=== PATIENT | male | born 1970 ===

== ENCOUNTER 2019-08-17 19:59 | Emergency (ER) | payer SELFPAY ==
[2019-08-17 20:40] VITALS: BP 106/64; PULSE 115; RESP 18; TEMP 37.9; O2SAT 96; BMI 27.1
== END 2019-08-17 21:40 | disposition left against medical advice (07) ==
LOC: ER 20:17
PROVIDERS: Emergency Provider Emergency Medicine
DX: Z53.21 Procedure and treatment not carried out due to patient leaving prior to being seen by health care provider (principal)
CPT/HCPCS: 99281

== ENCOUNTER 2019-08-23 10:18 | Emergency (ER) | payer SELFPAY ==
--- NOTE | 2019-08-23 10:33 | XRR_ITS ---
PROCEDURE INFORMATION: Exam: XR Chest, 1 View Exam date and time: 08/23/2019 10:57 AM Age: 48 years old Clinical indication: Patient HX: Cough/ nausea x 2 days TECHNIQUE: Imaging protocol: XR of the chest Views: 1 view. COMPARISON: No relevant prior studies available. FINDINGS: Lungs: Unremarkable. No consolidation. Pleural space: Unremarkable. No pleural effusion. No pneumothorax. Heart/Mediastinum: Unremarkable. No cardiomegaly. Bones/joints: Unremarkable. XR/XR chest 1V portable [id number] IMPRESSION: No acute findings.
--- NOTE | 2019-08-23 10:33 | CT_ITS ---
WS: [id number] CT ABDOMEN AND PELVIS WITH CONTRAST HISTORY: jaundice TECHNIQUE: Imaging performed of the abdomen and pelvis with IV contrast. Single phase imaging of the abdomen. Coronal and sagittal reformats are submitted. All CT scans at [facility] use at least one of these dose optimization techniques: automated exposure control; mA and/or kV adjustment per patient size (includes targeted exams where dose is matched to clinical indication); or iterativ e reconstruction. IV CONTRAST: Omnipaque 300; 95 mL IV. Oral contrast: No DLP: 813.56 mGy.cm COMPARISON: None available. Lower thorax: Emphysematous changes at the lung bases. Heart is normal size. No hiatal hernia. Liver/biliary system: Normal size with no intrahepatic dilatation. Gallbladder: Normal size gallbladder. No definite stones or pericholecystic fluid. Pancreas: Normal. Spleen: Normal. Adrenal glands: Normal. Right kidney: Normal. Left kidney: Normal. Aorta: Normal. Lymphadenopathy: None. Free fluid: None. GI tract: Marked fecal retention in the rectosigmoid region. There is an area of mild luminal narrowi ng in the distal sigmoid which could relate peristalsis or stricture. The appendix is normal. Abdominal wall: Unremarkable abdominal wall. No hernia. Pelvis: Normally distended urinary bladder. No free fluid or adenopathy. Bones: Mild degenerative changes at L4-5 and L5-S1. CT/CT abdomen pelvis w con* [id number] IMPRESSION: 1. Normal appendix. 2. No bile duct dilatation or pancreatic head mass. 3. Normal gallbladder. 4. Moderate constipation distal colon with an area of stricture in the distal sigmoid. This stricture may be due to peristalsis throughout neoplastic strictu re cannot be excluded. Recommend follow-up colonoscopy.
[2019-08-23 10:41] VITALS: BP 113/65; PULSE 109; RESP 16; TEMP 36.7; O2SAT 96; BMI 31.8
--- NOTE | 2019-08-23 10:43 | W.ED.GENADLT ---
HPI - General Adult General: Chief complaint: Weakness Stated complaint: WEAKNESS, AMS Time Seen by Provider: 08/23/19 10:26 History of Present Illness: HPI narrative: Patient presents to the emergency room with complaint of severe generalized weakness. He states that anytime he stands up he passes out. Patient is markedly jaundiced in the emergency department. He denies IV drug use, multiple sexual partners, or other risk factors for hepatitis B or C. Review of Systems General: Reports: 10 or more systems reviewed and unremarkable except in HPI and below Eyes: Reports: yellow eyes Skin/Breast: Reports: jaundice PFSH ED PFSH: Social History Smoking and tobacco status: current every day smoker Alcohol intake: never Substance/Drug Use: never Physical Exam Const: COMMON NORMALS: alert GENERAL APPEARANCE: cooperative, well developed, in distress and ill appearing HENMT: COMMON NORMALS: normocephalic and atraumatic HEAD & SCALP: normal to inspection, normocephalic and atraumatic Eye: GENERAL EYE: appearance normal, both eyes and all related structures Neck/C-Spine: COMMON NORMALS: full ROM, no lymphadenopathy and no meningeal signs GENERAL: Yes normal visual inspection CERVICAL SPINE: Yes cervical ROM normal and Yes normal cervical lordosis Chest: COMMONS NORMALS: normal inspection of the chest and normal palpation of entire chest wall Resp: COMMON NORMALS: normal respiratory effort, clear to auscultation bilaterally and percussion normal AUSCULTATION: clear to auscultation bilaterally PERCUSSION: percussion normal Cardio: COMMON NORMALS: regular rate, regular rhythm, S1 normal heart sound present and S2 normal heart sound present JUGULAR VENOUS DISTENTION: no JVD PALPATION: normal PMI RATE: regular rate RHYTHM: regular rhythm HEART SOUNDS: S1 normal heart sound present and S2 normal heart sound present GI: COMMON NORMALS: Soft to palpation and No hepatosplenomegaly present INSPECTION: Yes normal to inspection PALPATION: Yes Soft to palpation and Yes No hepatosplenomegaly present PERCUSSION: normal to percussion : COMMON NORMALS: Yes no CVA tenderness BLADDER/KIDNEY EXAM: Yes no CVA tenderness Back/Pelvis: COMMON NORMALS: no CVA tenderness, thoracic and lumbar spine normal to inspection and thoraco-lumbar ROM normal Extremity: COMMON NORMALS: normal to inspection, full ROM and capillary refill normal Neuro: SENSORIUM/ORIENTATION: Yes alert MENINGEAL SIGNS: Yes no meningeal signs Skin: COMMON NORMALS: no rashes or lesions noted and no wounds GENERAL SKIN EXAM: no rashes or lesions noted, elasticity normal and jaundice LESIONS: no lesions RASHES: no rashes TRAUMA: no lacerations or abrasions HAIR: normal NAILS: normal Course Vital Signs: Vital signs: Vital Signs Temperature 98.1 F 08/23/19 10:41 Pulse Rate 107 H 08/23/19 13:05 Respiratory Rate 18 08/23/19 12:23 Blood Pressure 87/53 08/23/19 13:05 Pulse Oximetry 94 08/23/19 13:05 [facility] - General Adult Lab Data: Labs: Lab Results 08/23/19 08/23/19 08/23/19 Range/Units 11:13 11:13 11:13 WBC 13.6 H (4.0-10.0) 10^3/ uL RBC 1.54 L (4.1-5.3) 10^6/u L Hgb 5.6 L* (11.7-16.6) g/dL Hct 16.7 L* (42.0-52.0) % MCV 108.4 H (80-94) fL MCH 36.4 H (28.0-34.0) pg MCHC 33.5 (30.0-36.0) g/dL RDW 12.6 (12.1-15.1) % Plt Count 164 (130-400) 10^3/c mm MPV 11.0 H (7.4-10.4) fL Neut % (Auto) 67.8 % Lymph % (Auto) 13.0 % Union % (Auto) 4.6 % Eos % (Auto) 5.1 % Baso % (Auto) 0.5 % Neut # (Auto) 9.24 H (1.8-7.7) 10^3/u L Lymph # (Auto) 1.8 (0.8-4.8) 10^3/u L Union # (Auto) 0.6 (0.2-0.9) 10^3/u L Eos # (Auto) 0.7 (0.0-0.8) 10^3/u L Baso # (Auto) 0.1 (0.0-0.1) 10^3/u L Nucleated RBC % (a uto) 1.4 % Nucleated RBCs # 0.2 /100WBC PT 15.00 H (10.5-13.3) SECO NDS INR 1.14 (0.8-1.2) APTT 25.9 (23.9-36.7) SECO NDS Sodium 128 L (136-145) mmol/L Potassium 4.4 (3.5-5.1) mmol/L Chloride 92 L (98-107) mmol/L Carbon Dioxide 25 (22-29) mmol/L Anion Gap 15.4 (5-19) BUN 26 H (6-20) mg/dL Creatinine 0.7 (0.7-1.2) mg/dL GFR Calculation 119.9 (90-130) mL/min Glucose 219 H (65-115) mg/dL Calculated Osmolal ity 270 L (285-295) mOsm/k g Lactate (0.5-2.2) mmol/L Calcium 8.4 L (8.5-10.5) mg/dL Total Bilirubin 8.0 H* (0.15-1.2) mg/dL AST 247 H (0-40) U/L ALT 170 H (0-41) U/L Alkaline Phosphata se 62 (40-130) IU/L Ammonia (16-60) umol/L Total Protein 7.3 (6.6-8.7) g/dL Albumin 3.1 L (3.5-5.2) g/dL Globulin 4.2 (1.3-4.6) g/dL Lipase 19 (13-60) U/L Hepatitis A IgM Ab (Nonreactive) Hep Bs Antigen (Nonreactive) Hep Bs Antibody (0-8.5) Hep B Core Total A b (Nonreactive) Hepatitis C Antibo dy (Nonreactive) 08/23/19 08/23/19 08/23/19 Range/Units 11:13 11:13 11:13 WBC (4.0-10.0) 10^3/ uL RBC (4.1-5.3) 10^6/u L Hgb (11.7-16.6) g/dL Hct (42.0-52.0) % MCV (80-94) fL MCH (28.0-34.0) pg MCHC (30.0-36.0) g/dL RDW (12.1-15.1) % Plt Count (130-400) 10^3/c mm MPV (7.4-10.4) fL Neut % (Auto) % Lymph % (Auto) % Union % (Auto) % Eos % (Auto) % Baso % (Auto) % Neut # (Auto) (1.8-7.7) 10^3/u L Lymph # (Auto) (0.8-4.8) 10^3/u L Union # (Auto) (0.2-0.9) 10^3/u L Eos # (Auto) (0.0-0.8) 10^3/u L Baso # (Auto) (0.0-0.1) 10^3/u L Nucleated RBC % (a uto) % Nucleated RBCs # /100WBC PT (10.5-13.3) SECO NDS INR (0.8-1.2) APTT (23.9-36.7) SECO NDS Sodium (136-145) mmol/L Potassium (3.5-5.1) mmol/L Chloride (98-107) mmol/L Carbon Dioxide (22-29) mmol/L Anion Gap (5-19) BUN (6-20) mg/dL Creatinine (0.7-1.2) mg/dL GFR Calculation (90-130) mL/min Glucose (65-115) mg/dL Calculated Osmolal ity (285-295) mOsm/k g Lactate 2.5 H (0.5-2.2) mmol/L Calcium (8.5-10.5) mg/dL Total Bilirubin (0.15-1.2) mg/dL AST (0-40) U/L ALT (0-41) U/L Alkaline Phosphata se (40-130) IU/L Ammonia 11 L (16-60) umol/L Total Protein (6.6-8.7) g/dL Albumin (3.5-5.2) g/dL Globulin (1.3-4.6) g/dL Lipase (13-60) U/L Hepatitis A IgM Ab Non-reactive (Nonreactive) Hep Bs Antigen Non-reactive (Nonreactive) Hep Bs Antibody 3.5 (0-8.5) Hep B Core Total A b Non-reactive (Nonreactive) Hepatitis C Antibo dy Non-reactive (Nonreactive) Discharge Plan Discharge Patient Disposition: Xfer Other Clinical Impression: Weakness, Orthostasis Acute liver failure Qualifiers: Hepatic coma status: without hepatic coma Qualified Code(s): K72.00 - Acute and subacute hepatic failure without coma Anemia Qualifiers: Anemia type: unspecified type Qualified Code(s): D64.9 - Anemia, unspecified Condition: Fair Discharge Orders: Transfer Out of Facility (Order); Ordered 08/23/19 Ordered By: Lalito Sloan Coding Level of Care Code ED Motor Electric[employer] for Chg Fwd Exam Comprehensive
[2019-08-23 10:53] VITALS: O2SAT 96
[2019-08-23] MEDS: sodium chloride 0.9% 1,000 ML 999 ML IV ×2 (11:19→13:00)
[2019-08-23 11:37] LABS: Basophils # 0.1 10^3/uL (0.0-0.1); Basophils % 0.5 %; Eosinophils # 0.7 10^3/uL (0.0-0.8); Eosinophils % 5.1 %; Lymphocytes # 1.8 10^3/uL (0.8-4.8); Mean Corpuscular HGB Conc 33.5 g/dL (30.0-36.0); Mean Corpuscular Hemoglobin 36.4 pg (28.0-34.0); Mean Corpuscular Volume 108.4 fL (80-94); Monocytes # 0.6 10^3/uL (0.2-0.9); Monocytes % 4.6 %; Neutrophils # 9.24 10^3/uL (1.8-7.7); Neutrophils % 67.8 %; Nucleated Red Blood Cells # 0.2 /100WBC; Nucleated Red Blood Cells % 1.4 %; Platelet Count 164 10^3/cmm (130-400); Red Blood Count 1.54 10^6/uL (4.1-5.3); Red Cell Distribution Width 12.6 % (12.1-15.1); White Blood Count 13.6 10^3/uL (4.0-10.0)
[2019-08-23] MEDS: iohexol 300 mg/mL 100 mL Btl IV (11:40)
[2019-08-23 11:56] LABS: Ammonia 11 umol/L (16-60); Lactate (Lactic Acid level) 2.5 mmol/L (0.5-2.2)
[2019-08-23 11:57] LABS: Alanine Aminotransferase 170 U/L (0-41); Albumin Level 3.1 g/dL (3.5-5.2); Alkaline Phosphatase 62 IU/L (40-130); Anion Gap 15.4 (5-19); Aspartate Amino Transferase 247 U/L (0-40); Blood Urea Nitrogen 26 mg/dL (6-20); Calcium 8.4 mg/dL (8.5-10.5); Carbon Dioxide 25 mmol/L (22-29); Chloride 92 mmol/L (98-107); Globulin 4.2 g/dL (1.3-4.6); Glomerular Filtration Rate 119.9 mL/min (90-130); Glucose 219 mg/dL (65-115); Lipase 19 U/L (13-60); Osmolality Calculated 270 mOsm/kg (285-295); Potassium 4.4 mmol/L (3.5-5.1); Sodium 128 mmol/L (136-145); Total Protein 7.3 g/dL (6.6-8.7)
[2019-08-23 12:03] LABS: INR 1.14 (0.8-1.2); Partial Thromboplastin Time 25.9 SECONDS (23.9-36.7)
[2019-08-23 12:11] LABS: Hematocrit 16.7 % (42.0-52.0); Hemoglobin 5.6 g/dL (11.7-16.6); Slide Review Slide Review Perform
[2019-08-23 12:20] LABS: Hepatitis A Antibody IgM Non-Reactive (Nonreactive); Hepatitis B Core AB, Total Non-Reactive (Nonreactive); Hepatitis B Surface AB 3.5 (0-8.5); Hepatitis B Surface Antigen Non-Reactive (Nonreactive); Hepatitis C Virus Antibody Non-Reactive (Nonreactive)
[2019-08-23 12:23] VITALS: BP 98/66; PULSE 112; RESP 18; O2SAT 94
[2019-08-23 13:05] VITALS: BP 87/53; PULSE 107; O2SAT 94
[2019-08-23 13:14] VITALS: BP 111/63; PULSE 107; RESP 16; O2SAT 98
[2019-08-23 13:42] LABS: Glucose Urine UA Norm (Normal); Ketones Urine Negative (Negative); Protein Urine Trace (Negative); Urine Appearance Clear (CLEAR); Urine Color Amber (Yellow)
[2019-08-23 13:43] LABS: Add Urine Culture? No; Add Urine Microscopic? YES; Bacteria Urine 1+; Bilirubin Urine 1+ (NEGATIVE); Blood Urine 1+ (Negative); Leukocyte Esterase Urine Negative (Negative); Nitrate Urine Negative (Negative); Squamous Epithelial Cell Urine 25-40 (0-5); Urobilinogen Urine Norm (Negative)
[2019-08-23 13:51] LABS: Amphetamines Screen Urine Negative (Negative); Barbiturates Screen Urine Negative (Negative); Benzodiazepines Screen Urine Negative (Negative); Cocaine Screen Urine Negative (Negative); Opiate Screen Urine Negative (Negative); PCP Screen Urine Negative (Negative); THC Screen Urine Negative (Negative)
[2019-08-23 14:23] VITALS: BP 95/61; PULSE 102; RESP 15; TEMP 36.8
== END 2019-08-23 14:38 | disposition other institution (70) ==
PROVIDERS: Emergency Provider Family Medicine
DX: R53.1 Weakness (principal); I95.1 Orthostatic hypotension; K72.00 Acute and subacute hepatic failure without coma; D64.9 Anemia, unspecified; F17.210 Nicotine dependence, cigarettes, uncomplicated
CPT/HCPCS: 12345; 36415; 36430; 71045; 74177; 80053; 80306; 81001; 81003; 82140; 83605; 83690; 85025; 85610; 85730; 86705; 86706; 86709; 86803; 86850; 86900; 86920; 87040; 87340; 96360; 96361; 99283; 99285; J7030; P9016; Q9967